=== PATIENT | female | born 1990 | race Caucasian/White ===

== ENCOUNTER 2020-05-15 13:34 | Outpatient (CLI) | payer OTHER, SELFPAY ==
[2020-05-15 23:09] LABS: SARS-CoV-2 RNA PCR Negative
== END 2020-05-15 13:35 | disposition home or self-care (01) ==
LOC: CHSLAB 13:38
PROVIDERS: PCP Internal Medicine; Visit Provider Internal Medicine
DX: Z20.828 Contact with and (suspected) exposure to other viral communicable diseases (principal)
CPT/HCPCS: 87635; C9803; U0003

== ENCOUNTER 2020-09-30 10:40 | Outpatient (CLI) | payer OTHER, SELFPAY ==
[2020-10-01 09:43] LABS: Free T4 Free Thyroxine 1.19 ng/mL (0.78-2.19)
[2020-10-01 09:57] LABS: Thyroid Stimulating Hormone 0.821 uIU/mL (0.465-4.680)
== END 2020-09-30 10:41 | disposition home or self-care (01) ==
PROVIDERS: PCP Internal Medicine; Visit Provider Obstetrics & Gynecology
DX: R63.5 Abnormal weight gain (principal)
CPT/HCPCS: 36415; 84439; 84443

== ENCOUNTER 2021-10-22 14:04 | Outpatient (CLI) | payer OTHER, SELFPAY ==
[2021-10-22 18:28] LABS: SARS-CoV-2 RNA PCR Negative (Negative)
== END 2021-10-22 14:05 | disposition home or self-care (01) ==
PROVIDERS: PCP Internal Medicine; Visit Provider Internal Medicine
DX: J06.9 Acute upper respiratory infection, unspecified (principal); Z20.822 Contact with and (suspected) exposure to COVID-19
CPT/HCPCS: C9803; U0003; U0005

== ENCOUNTER 2021-11-12 11:22 | Outpatient (CLI) | payer OTHER, SELFPAY ==
--- NOTE | ~2021-11-12 | XR_ITS ---
EXAMINATION: XR chest 2V DATE: 11/12/2021 11:48 INDICATION: Chronic cough. Intermittent chest pain. Shortness of breath. TECHNIQUE: Frontal and lateral views of the chest were obtained. COMPARISON: None. FINDINGS: The chest demonstrates clear lungs without pneumonia, pleural effusion, or pneumothorax. Th e heart size is normal. IMPRESSION: 1. No acute cardiopulmonary disease. Reviewed, dictated and finalized at location A.
[2021-11-12 11:35] LABS: Basophils Absolute Auto 0.03 K/mm3 (0.00-0.10); Basophils Percent Auto 0.5 % (0.0-1.0); Eosinophils Absolute Auto 0.13 K/mm3 (0.02-0.50); Hematocrit 38.5 % (35.0-49.0); Hemoglobin 12.9 g/dL (12.0-15.0); Immature Granulocyte Absolute 0.03 K/mm3 (0.00-0.00); Immature Granulocyte Percent A 0.5 % (0.0-0.0); Lymphocytes Absolute Auto 1.83 K/mm3 (1.10-4.50); Lymphocytes Percent Auto 27.7 % (18.0-42.0); Mean Corpuscular HGB Conc 33.5 g/dL (32.0-36.0); Mean Corpuscular Hemoglobin 30.5 pg (27.0-31.0); Mean Platelet Volume 8.9 fl (9.2-11.8); Monocytes Absolute Auto 0.39 K/mm3 (0.10-0.90); Monocytes Percent Auto 5.9 % (2.0-11.0); Neutrophils Absolute Auto 4.2 K/mm3 (1.7-7.2); Neutrophils Percent Auto 63.4 % (50.0-70.0); Platelet Count Result 317 K/mm3 (150-420); Red Blood Count 4.23 M/mm3 (4.20-5.40); Red Cell Distribution Width 12.3 % (11.6-14.4); White Blood Count 6.6 K/mm3 (4.8-10.8)
[2021-11-12 11:53] LABS: Add Urine Microscopic? NO; Appearance Urine Clear (Clear); Bilirubin Urine Negative (Negative); Blood Urine Negative (Negative); Color Urine Light Yellow (Yellow); Glucose Urine UA Negative (Negative); Ketones Urine Negative (Negative); Leukocyte Esterase Ur Negative LEU/UL (Negative); Nitrate Urine Negative (Negative); Protein Urine Negative (Negative); Urobilinogen Urine 0.2 mg/dL (0.2-1.0)
[2021-11-12 13:50] LABS: Alanine Aminotransferase 48 U/L (14-59); Albumin Level 4.1 g/dL (3.4-5.0); Alkaline Phosphatase 94 U/L (46-116); Anion Gap 8 mmol/L (8-16); Aspartate Amino Transferase 85 U/L (15-37); Bilirubin,Total 0.5 mg/dL (0.00-1.00); Blood Urea Nitrogen 16 mg/dL (7-18); Calcium 9.4 mg/dL (8.5-10.1); Carbon Dioxide 27 mmol/L (21-32); Chloride 101 mmol/L (98-108); Cholesterol 194 mg/dL (0-200); Estimated Glomerular Filt Rate > 60; Glucose 87 mg/dL (70-99); HDL Direct 66 mg/dL (40-60); LDL Cholesterol Calculated 106 mg/dL (<130); Osmolality Calculated 282 mOsm/kg (285-295); Potassium 4.5 mmol/L (3.5-5.1); Sodium 136 mmol/L (136-145); Total Protein 7.3 g/dL (6.4-8.2); Triglycerides 110 mg/dL (0-150)
[2021-11-18 04:11] LABS: Hepatitis A Antibody IgM Nonreactive; Hepatitis B Core Antibody Nonreactive (Nonreactive); Hepatitis B Surface Antigen Nonreactive (Nonreactive); Hepatitis C Signal to Cutoff 0.01 ratio (<1.00); Hepatitis C Virus Antibody Nonreactive (Nonreactive)
== END 2021-11-12 11:23 | disposition home or self-care (01) ==
LOC: CHSLAB 11:27
PROVIDERS: PCP Internal Medicine; Visit Provider Nurse Practitioner Family
DX: Z00.00 Encounter for general adult medical examination without abnormal findings (principal); R05.3 Chronic cough; F41.9 Anxiety disorder, unspecified; Z13.6 Encounter for screening for cardiovascular disorders; R94.5 Abnormal results of liver function studies
CPT/HCPCS: 36415; 71046; 80053; 80061; 80074; 81003; 84443; 85025

== ENCOUNTER 2021-12-05 14:04 | Outpatient (CLI) | payer OTHER, SELFPAY | END 2021-12-05 14:05 | disposition home or self-care (01) | LOC: ANHBWCAUD 14:28 | PROVIDERS: PCP Internal Medicine; Visit Provider Otolaryngology | DX: H93.11 Tinnitus, right ear (principal); H90.0 Conductive hearing loss, bilateral | CPT/HCPCS: 92557; 92567 ==

== ENCOUNTER 2022-01-23 09:31 | Outpatient (CLI) | payer OTHER, SELFPAY | END 2022-01-23 09:32 | disposition home or self-care (01) | LOC: CHSCARD 09:33 | PROVIDERS: PCP Internal Medicine; Visit Provider Nurse Practitioner Family | DX: R05.3 Chronic cough (principal) | CPT/HCPCS: 94060; 94726; 94729 ==

== ENCOUNTER 2022-02-03 13:59 | Outpatient (CLI) | payer OTHER, SELFPAY ==
--- NOTE | ~2022-02-03 | CT_ITS ---
EXAMINATION: CT diagnostic chest wo con DATE: 02/03/2022 14:21 INDICATION: Chronic cough for 2 years. Hemoptysis. TECHNIQUE: Computed tomography (CT) of the chest was performed without intravenous contrast. Automate d exposure control and iterative reconstruction technique were employed. Exam dose: 152.26 mGy-cm to abraham exam DLP. COMPARISON: November 12, 2021 PA and lateral chest FINDINGS: Normal heart size. No pericardial or pleural effusion. No hilar or mediastinal mass lesion or lymphadenopathy. Small right upper lobe calcified pulmonary granuloma. No pulmonary infiltrate or consolidation or pul monary mass lesion. No pneumothorax. The tracheobronchial tree is patent. Normal morphology of the adrenal glands. Included upper abdominal structures are normal. Included skeletal structures are normal except for mild degenerative spurring of the thoracic spine.. IMPRESSION: No significant abnormality Reviewed, dictated and finalized at Location A. Reviewed, dictated and finalized at location B. IMPRESSION: No significant abnormality
== END 2022-02-03 14:00 | disposition home or self-care (01) ==
PROVIDERS: PCP Internal Medicine; Visit Provider Internal Medicine Pulmonary Disease
DX: R04.2 Hemoptysis (principal); M47.814 Spondylosis without myelopathy or radiculopathy, thoracic region
CPT/HCPCS: 71250

== ENCOUNTER 2022-02-24 12:39 | Outpatient (CLI) | payer OTHER, SELFPAY ==
--- NOTE | 2022-02-27 14:27 | WPDMETH ---
Methacholine Procedure Perform Procedure Performed Methacholine Challenge Methacholine Challenge Methacholine Challenge: DOS:02/24/2022 REQUESTING: Dr Agrawal REASON FOR TESTING: Chronic cough METHACHOLINE CHALLENGE This test was conducted per ATS guidelines. A previous study on 01/23/2022 showed normal spirometry, FEV1 122% predicted, 3.49 L. The patient was exposed to sequentially increasing doses of methacholine in the usual manner. Level 1 - saline Level 2 - 0.187 mg/3 mL, 1.87 mcg The test was stopped after the first dose of methacholine with a decrease of 21%. The FEF 25-75% dropped by 58% which is significant. A drop of 20% in the FEV1 is a positive result, and the testing is terminated. Flows returned to normal after bronchodilator was administered. IMPRESSION: This is a strongly positive methacholine challenge with the PD20 1.87 mcg on the first level. The best use for a methacholine challenge is to rule out asthma. Clinical correlation is advised. Eloina Tellez MD
== END 2022-02-24 12:40 | disposition home or self-care (01) ==
LOC: ANHPFT 12:41
PROVIDERS: PCP Internal Medicine; Visit Provider Internal Medicine Pulmonary Disease
DX: R06.02 Shortness of breath (principal); R94.2 Abnormal results of pulmonary function studies
CPT/HCPCS: 94070; J7674

== ENCOUNTER → 2022-03-31 13:53 | Outpatient (CLI) | payer OTHER, SELFPAY ==
--- NOTE | ~2022-03-31 | US_ITS ---
EXAMINATION: US pelvic complete w TV DATE: 03/31/2022 14:32 INDICATION: Pelvic pain Comparison:No prior studies for comparison. TECHNIQUE: Multiple transabdominal and endovaginal sonographic images of the pelvis performed. FINDINGS: The uterus measures 7.6 x 2.8 x 4.5 cm. The endometrial complex measures 3.5 mm. There is a small exophytic uterine fibroid posteriorly measuring 1.5 x 1.6 x 1.7 cm. The right ovary measures 2.9 x 1.8 x 1.9 cm and the left ovary measures 3 x 1.8 x 2.2 cm. There are small follicles in each ovary. Normal doppler signal in both ovaries. There is no free fluid in the pelvis. There are no abnormal masses seen on either side. IMPRESSION: 1. Small exophytic uterine fibroid posteriorly measuring up to 1.7 cm. Reviewed, dictated and finalized at location A.
--- NOTE | ~2022-03-31 | US_ITS ---
US thyroid INDICATION: Enlarged thyroid gland TECHNIQUE: Real-time sonographic images of the thyroid gland were obtained. COMPARISON: No prior studies for comparison. FINDINGS: The right thyroid lobe measures 5.1 x 1.8 x 1.3 cm. The left thyroid lobe measures 4.1 x 1 .3 x 1.4 cm. There is normal echotexture and echogenicity throughout the thyroid gland. In the right lobe there is an isoechoic solid, taller than wide mass with ill-defined margins and no echogenic foc i, TR 4. This nodule measures 11 x 10 x 8 mm. In the left lobe there is a small hypoechoic mixed kamran d and cystic lesion which is wider than tall, without echogenic foci measuring 3 x 2 x 2 mm,, TR 3. N ormal vascular flow is present. IMPRESSION: 1. Bilateral thyroid nodules as described above. Solid right thyroid nodule measures 1.1 cm maximum dimension, TR 4. Follow-up ultrasound in 12 months recommended. Reviewed, dictated and finalized at location A. IMPRESSION: 1. Bilateral thyroid nodules as described above. Solid right thyroid nodule me asures 1.1 cm maximum dimension, TR 4. Follow-up ultrasound in 12 months recomm ended.
== END ==
PROVIDERS: PCP Internal Medicine; Visit Provider Obstetrics & Gynecology
DX: N85.2 Hypertrophy of uterus (principal); E04.9 Nontoxic goiter, unspecified
CPT/HCPCS: 76536; 76830; 76856

== ENCOUNTER 2022-12-10 08:19 | Outpatient (CLI) | payer OTHER, SELFPAY ==
--- NOTE | 2022-12-25 18:36 | WPDHOMESLEEP ---
Sleep Study - Home Unattended Date of Study: 12/10/22 Ordering Provider: Louis Agrawal MD Interpreting Provider: Lila Cantu, DO Home Sleep Study Type: Watch PAT Height: 1.6 m Weight: 74.843 kg Body Mass Index: 29.2 Neck Circumference (inches): 14 [place]: 14 Reason for Sleep Study Previously diagnosed LUIS. Had CPAP but it was recalled. 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 The patient frequently awakens from sleep short of breath. She frequently awakens at night with cough. She occasionally snores but it is rarely loud enough that others complain. She constantly has trouble sleeping when she has a cold. She rarely wakes up gasping for air throughout the night. She frequently has breathing problems at night observed by herself or others. She occasionally sweats excessively at night. She rarely has heart palpitations or irregular heartbeats during the night. She frequently falls asleep during the day. She rarely falls asleep while driving. She denies sleep paralysis and cataplexy. She frequently has trouble at school work due to sleepiness. She rarely experiences vivid dreamlike scenes upon awakening or falling asleep. She denies feeling afraid of going to sleep. She rarely has nightmares. She frequently remembers her dreams. She constantly has thoughts racing through her mind. She frequently feels sad, depressed and anxious. He occasionally has muscular tension. She rarely notices parts of her body jerk. She denies kicking during the night. She occasionally has crawling and aching feelings in her legs but rarely has leg pain during the night. She is unsure if she grinds her teeth during sleep but she occasionally awakens with morning jaw pain. She is occasionally bothered by pain during the day and occasionally awakened by pain during the night. She frequently wakes up feeling stiff in the morning. She occasionally wakes up with sore or achy muscles. She constantly wakes up with pain in the neck, spine or other joints. She goes to bed at 10:00 p.m. or later on weekdays and at 11:00 p.m. or later on the weekends. It can take her a minimum of 1 hour to fall asleep. She wakes up over 5 times throughout the night to urinate and reposition. It can take her over 20 minutes to fall back asleep. She wakes up between 5-9 a.m. on weekdays and between 7-10 a.m. on the weekends. She typically gets 5-7 hours of sleep per night. She will stay in bed for 15 minutes after waking up in the morning. She currently lives alone. She does not consume any caffeinated beverages within 2 hours of bedtime. She does not engage in physical exercise before bedtime. She will watch television before falling asleep. She will take naps in the afternoon or the evening but they are not refreshing. He drinks a minimum of 2 caffeinated beverages per day. She quit smoking cigarettes 5 years ago. She will drink alcohol occasionally. She denies recreational drug use. [facility] Past Medical History Medical History Anxiety Depression Endometriosis Irritable bowel Migraines PCOS (polycystic ovarian syndrome) Sleep apnea Vaginismus Surgical History Surgical History History of laparoscopy History of placement of ear tubes Hx of tonsillectomy Status post nasal septoplasty Family History Family History Grandparent History of blood clots Diabetes mellitus Acute myocardial infarction Hypertension Other Breast cancer Cervical cancer Mother Cervical cancer Other Carcinoma of colon Social History Socia
[2022-12-25 18:45] VITALS: BMI 29.2
== END 2022-12-11 09:38 | disposition home or self-care (01) ==
LOC: ANHCSM 08:19
PROVIDERS: Visit Provider Internal Medicine Pulmonary Disease
DX: G47.33 Obstructive sleep apnea (adult) (pediatric) (principal); G47.9 Sleep disorder, unspecified
CPT/HCPCS: 95800

== ENCOUNTER 2023-02-08 08:09 | Outpatient (CLI) | payer MEDICAID, SELFPAY ==
--- NOTE | ~2023-02-08 | US_ITS ---
EXAMINATION: US OB <=14 wk fetus w TV DATE: 02/08/2023 08:45 INDICATION: Establish dating and viability of TECHNIQUE: Real-time pelvic ultrasound utilizing both a transvaginal and transabdominal probe was pe rformed. The interpreting radiologist was not present for the study. COMPARISON: None. FINDINGS: The uterus measures 9.7 x 6.4 x 5.7 cm. There is an intrauterine gestational sac. A yolk sac and fet al pole are identified. The crown rump length measures 10 mm, which correlates with an estimated gest ational age of 7 weeks and 0 days. heart motion is identified with mean heart rate measuring 14 8 beats per minute (bpm) by M-mode Doppler. Small hypoechoic subchorionic hematoma measuring 6 x 4 x 7 mm. Normal cervical length of 5 cm with 3 mm nabothian cyst. The right ovary measures 2.8 x 2.3 x 1.9 cm. The left ovary measures 4.3 x 2.2 x 2.0 cm. 1.2 cm anech oic left ovarian cyst. There is no free fluid in the pelvis. IMPRESSION: 1. Single living fetus with heart rate of 148 bpm. 2. Gestational age by ultrasound of 7 weeks 0 day(s) +/- 4 day(s) with ultrasound estimated date of delivery (JANICE) of 09/27/2023. 3. Small subchorionic hematoma. Reviewed, dictated and finalized at location D. IMPRESSION: 1. Single living fetus with heart rate of 148 bpm. 2. Gestational age by ultrasound of 7 weeks 0 day(s) +/- 4 day(s) with ultraso und estimated date of delivery (JANICE) of 09/27/2023. 3. Small subchorionic hematoma.
== END 2023-02-08 08:10 | disposition home or self-care (01) ==
LOC: CHSIMG 08:10
PROVIDERS: PCP Internal Medicine; Visit Provider Registered Nurse
DX: Z34.90 Encounter for supervision of normal pregnancy, unspecified, unspecified trimester (principal); Z3A.01 Less than 8 weeks gestation of pregnancy; O36.8911 Maternal care for other specified fetal problems, first trimester, fetus 1
CPT/HCPCS: 76801; 76817

== ENCOUNTER 2023-03-05 12:44 | Outpatient (CLI) | payer MEDICAID, SELFPAY ==
[2023-03-05 13:32] LABS: Basophils Percent Auto 0.2 % (0.2-1.2); Eosinophils Percent Auto 0.2 % (0-4.4); Hematocrit 36.3 % (37.0-47.0); Hemoglobin 12.3 g/dL (12.0-15.0); Immature Granulocyte Absolute 0.04 K/mm3 (0.00-0.031); Immature Granulocyte Percent A 0.4 % (0-0.5); Lymphocytes Absolute Auto 0.99 K/mm3 (0.9-3.2); Lymphocytes Percent Auto 9.9 % (18.3-44.2); Mean Corpuscular HGB Conc 33.9 g/dl (32-36); Mean Corpuscular Hemoglobin 30.5 pg (26-34); Mean Corpuscular Volume 90.1 fl (80-100); Mean Platelet Volume 9.7 fl (7.4-10.4); Monocytes Absolute Auto 0.4 K/mm3 (0.1-0.6); Monocytes Percent Auto 3.6 % (2.6-8.5); Neutrophils Absolute Auto 8.6 K/mm3 (1.3-6.7); Neutrophils Percent Auto 85.7 % (45.5-73.1); Platelet Count Result 252 k/mm3 (150-375); Red Blood Count 4.03 M/mm3 (4.2-5.4); Red Cell Distribution Width 12.5 % (11.5-14.5)
[2023-03-05 14:01] LABS: Vitamin D 25 Hydroxy 30.6 ng/mL
[2023-03-05 14:12] LABS: Thyroid Stimulating Hormone 0.464 uIU/mL (0.465-4.680)
[2023-03-05 14:16] LABS: Hepatitis B Surface Antigen Negative (Negative)
[2023-03-05 14:21] LABS: HIV 1/2 Ab P24 Ag Result Negative (Negative)
[2023-03-05 14:32] LABS: Hepatitis C Virus Antibody Negative (Negative)
[2023-03-05 17:06] LABS: Rapid Plasma Reagin Non-Reactive (NonReactive)
[2023-03-09 17:23] LABS: Hematocrit 39.3 % (35.0-45.0); Hemoglobin 12.5 g/dL (11.7-15.5); MCV 94.2 fL (80.0-100.0); RDW 12.7 % (11.0-15.0); Red Blood Cell Count 4.17 Mill/uL (3.80-5.10)
[2023-03-16 00:09] LABS: CF Result NEGATIVE (NEGATIVE)
== END 2023-03-05 12:45 | disposition home or self-care (01) ==
LOC: ANHLAB 12:46
PROVIDERS: PCP Internal Medicine; Visit Provider Obstetrics & Gynecology
DX: Z34.90 Encounter for supervision of normal pregnancy, unspecified, unspecified trimester (principal); G47.9 Sleep disorder, unspecified
CPT/HCPCS: 36415; 81220; 82306; 83021; 84443; 85025; 86592; 86703; 86762; 86787; 86803; 86850; 86900; 86901; 87077; 87086; 87088; 87340; G0432

== ENCOUNTER 2023-03-11 16:29 | Outpatient (CLI) | payer MEDICAID, SELFPAY ==
[2023-03-11 17:21] LABS: Free T4 Free Thyroxine 1.08 ng/dL (0.76-1.46)
== END 2023-03-11 16:30 | disposition home or self-care (01) ==
LOC: CHSLAB 16:31
PROVIDERS: PCP Internal Medicine; Visit Provider Obstetrics & Gynecology
DX: R79.89 Other specified abnormal findings of blood chemistry (principal)
CPT/HCPCS: 36415; 84439

== ENCOUNTER 2023-03-29 10:49 | Emergency (ER) | payer MEDICAID, SELFPAY ==
--- NOTE | ~2023-03-29 | US_ITS ---
EXAMINATION: US OB follow up DATE: 03/29/2023 15:07 INDICATION: Suprapubic pain during second trimester TECHNIQUE: Real-time ultrasound of the pelvis was performed. The interpreting radiologist was not pre sent for the study. COMPARISON: None. FINDINGS: There is a single living fetus in vertex presentation. The placenta is anterior. card iac activity and movement are noted. heart rate is 148 beats per minute (bpm). The amniot ic fluid index is subjectively normal. The following biometric data were obtained: Biparietal diameter (BPD): 2.8 cm; head circumference (HC): 10.4 cm; abdominal circumference (AC): 7. 8 cm; femur length (FL): 1.5 cm. These measurements are concordant. Estimated weight is 97 g +/- 14 g, which correlates with the 65th percentile when 09/27/2023 is used as estimated date of delivery. As single measurements, these parameters are each equal to the following estimated gestational ages w ith ranges of +/- 2 standard deviations: BPD: 15 weeks 0 days +/- 1 weeks 1 days. HC: 14 weeks 6 days +/- 1 weeks 1 days. AC: 14 weeks 2 days +/- 1 weeks 5 days. FL: 14 weeks 4 days +/- 1 weeks 3 days. estimated gestational age based solely on measurements from this exam is 14 weeks 5 days +/- 1 weeks 0 days. IMPRESSION: 1. Single living fetus in vertex presentation. 2. Estimated weight is 97 g +/- 14 g, which correlates with the 65th percentile when 09/27/2023 is used as estimated date of delivery. 3. No sonographic correlate for the patient's symptoms. Reviewed, dictated and finalized at location A. IMPRESSION: 1. Single living fetus in vertex presentation. 2. Estimated weight is 97 g +/- 14 g, which correlates with the 65th per centile when 09/27/2023 is used as estimated date of delivery. 3. No sonographic correlate for the patient's symptoms.
[2023-03-29 11:36] VITALS: BP 119/72; PULSE 68; RESP 20; TEMP 36.2; O2SAT 100
[2023-03-29 11:51] LABS: Basophils Percent Auto 0.2 % (0.2-1.2); Eosinophils Percent Auto 0.2 % (0-4.4); Hematocrit 35.7 % (37.0-47.0); Immature Granulocyte Absolute 0.05 K/mm3 (0.00-0.031); Immature Granulocyte Percent A 0.5 % (0-0.5); Lymphocytes Absolute Auto 1.28 K/mm3 (0.9-3.2); Lymphocytes Percent Auto 12.4 % (18.3-44.2); Mean Corpuscular HGB Conc 33.6 g/dl (32-36); Mean Corpuscular Hemoglobin 30.7 pg (26-34); Mean Corpuscular Volume 91.3 fl (80-100); Mean Platelet Volume 9.5 fl (7.4-10.4); Monocytes Absolute Auto 0.4 K/mm3 (0.1-0.6); Monocytes Percent Auto 3.5 % (2.6-8.5); Neutrophils Absolute Auto 8.6 K/mm3 (1.3-6.7); Neutrophils Percent Auto 83.2 % (45.5-73.1); Platelet Count Result 230 k/mm3 (150-375); Red Blood Count 3.91 M/mm3 (4.2-5.4); Red Cell Distribution Width 12.8 % (11.5-14.5); White Blood Count 10.3 K/mm3 (4.5-10.0)
[2023-03-29 12:01] LABS: Alanine Aminotransferase 34 U/L (6-35); Albumin Level 4.2 g/dL (3.5-5.1); Alkaline Phosphatase 70 U/L (38-126); Anion Gap 7 mmol/L (8-16); Aspartate Amino Transferase 32 U/L (14-36); Bilirubin,Total 0.6 mg/dL (0.2-1.3); Blood Urea Nitrogen 10 mg/dL (7-17); Calcium 9.2 mg/dL (8.4-10.2); Carbon Dioxide 24 mmol/L (22-30); Chloride 100 mmol/L (98-107); Estimated CRCL calculation 96 ml/min; Estimated Glomerular Filt Rate > 60; Glucose 90 mg/dL (65-110); Lipase 37 U/L (23-300); Potassium 4.6 mmol/L (3.4-5.0); Sodium 131 mmol/L (137-145)
[2023-03-29 12:33] LABS: Appearance Urine Cloudy (Clear); Bacteria Urine 3+ /hpf; Bilirubin Urine 1+ (Negative); Blood Urine Negative (Negative); Color Urine Dark Yellow (Yellow); Glucose Urine UA Negative (Negative); Ketones Urine 1+ mg/dL (Negative); Leukocyte Esterase Ur 1+ LEU/UL (Negative); Need Manual Microscopic Reviewed; Nitrate Urine Negative (Negative); Protein Urine 1+ mg/dL (Negative); RBC Urine 0-2 /hpf (0-2); Specific Grav Ur 1.027 (1.001-1.035); Squamous Epithelial Cell Urine Many /hpf (Few)
[2023-03-29 12:34] LABS: Add Urine Microscopic? YES
[2023-03-29] MEDS: SODIUM CHLORIDE 0.9% IV 1,000 ML 999 ML IV CONT ×3 (13:40→18:00)
[2023-03-29] MEDS: METOCLOPRAMIDE HCL INJ 10 MG/2 ML VIAL IV PUSH (13:43)
--- NOTE | 2023-03-29 14:30 | ED.NAVMDI ---
HPI - Nausea/Vomiting/Diarrhea General Chief complaint: Nausea/Vomiting/Diarrhea Stated complaint: preg/vomiting Time Seen by Provider: 03/29/23 13:33 History of Present Illness HPI Narrative: 32-year-old female, G2, P0 who is currently 14 weeks gestation, LMP 01/21, reports for evaluation for nausea and vomiting x3 days. Patient states anytime she tries to eat or drink something she immediately vomits. She reports multiple episodes of vomiting in the past 3 days. States today she has been having suprapubic and LLQ and RLQ abdominal pain that is intermittent and sharp in nature along with L sided flank pain. States this morning she noticed brown vaginal discharge, denies vaginal bleeding. She denies dysuria or hematuria. She does report low back pain and a migraine behind her eyes with associated photophobia. She has a history of migraines and states this migraine is unchanged from her baseline migraines. She denies focal numbness or weakness, vision changes, chest pain or shortness of breath. Last bowel movement was 2 days ago and normal. Denies diarrhea and constipation, denies concern for STDs. States she follows with Dr. Dowling, [employer]. She had an ultrasound at 7 weeks gestation which proved IUP. Related Data Allergies Allergy/AdvReac Type Severity Reaction Status Date / Time No Known Allergies Allergy Verified 03/29/23 13:39 Review of Systems Review of Systems: CONSTITUTIONAL: Denies fever, chills EYES: Denies visual changes, redness, or discharge. ENT: Denies rhinorrhea, congestion, sore throat, or otalgia. CARDIOVASCULAR: Denies chest pain, palpitations, or edema. RESPIRATORY: Denies cough or dyspnea. GASTROINTESTINAL: See HPI GENITOURINARY: Denies dysuria or hematuria. SKIN: Denies rash or itching. MUSCULOSKELETAL: See HPI NEUROLOGIC: See HPI PSYCHIATRIC: Denies anxiety or depression. Exam Narrative: GENERAL: Well-appearing, in no acute distress. Patient resting comfortably in exam bed. She is pleasant and conversational. HEAD: Normocephalic EYES: PERRLA, EOMI ENT: Nares clear. Mucous membranes moist. Oropharynx without tonsillar hypertrophy exudate or other lesions. NECK: Supple. No nuchal rigidity. CHEST: No respiratory distress. Clear to auscultation, no adventitious breath sounds. HEART: Regular rate and rhythm. No murmur heard. Normal peripheral pulses. ABDOMEN: Abdomen soft with tenderness in the suprapubic region with associated guarding. No overlying skin changes. No peritoneal signs. No CVA tenderness. : No lesions, erythema or edema to external genitalia, vaginal canal or cervix. Cervical os closed. Moderate amount of milky white discharge in vaginal vault. No blood in vaginal vault. No CMT. No adnexal masses or tenderness. EXTREMITIES: Normal range of motion. No edema. SKIN: Warm, dry, no rash. NEURO: No focal deficits. Alert and oriented x3. Cranial nerves II through XII intact. Strength 5/5 in BUE and BLE. Sensation intact throughout. Normal finger-nose. No pronator drift. PSYCH: Normal mood and affect. Course Vital Signs Vital signs: Vital Signs Temperature 97.1 F L 03/29/23 11:36 Pulse Rate 68 03/29/23 11:36 Respiratory Rate 20 03/29/23 11:36 Blood Pressure 119/72 03/29/23 11:36 Pulse Oximetry 100 03/29/23 11:36 Temperature 98.1 F 03/29/23 18:59 Pulse Rate 69 03/29/23 18:59 Respiratory Rate 20 03/29/23 18:59 Blood Pressure 115/70 03/29/23 18:59 Pulse Oximetry 100 03/29/23 18:59 MDM - Nausea/Vomiting/Diarrhea MDM Narrative Medical decision making narrative: 32-year-old female, G2, P0 who is currently 14 weeks gestation, LMP 01/21, reports for evaluation for nausea and vomiting x3 days, suprapubic abdominal pain x1 day, and migraine. Vital stable. She is well-appearing on exam. She is neurovascularly intact. Abdomen is soft with tenderness in the suprapubic region. No peritoneal signs. She did report brown discharge this mo
[2023-03-29] MEDS: ACETAMINOPHEN 500 MG TABLET 1000 MG PO (15:16)
[2023-03-29 15:17] LABS: INR 0.9; Prothrombin Time 12.7 Seconds (11.1-14.7)
[2023-03-29] MEDS: diphenhydrAMINE HCl INJ 50 MG/ML VIAL 25 MG IV PUSH (15:17)
[2023-03-29 15:18] LABS: Magnesium 1.5 mg/dL (1.6-2.3)
[2023-03-29] MEDS: MAGNESIUM SULF 1 GM/D5W 100 ML 1 GM/100 ML BAG IVPB (15:56)
[2023-03-29] MEDS: ONDANSETRON INJ 4 MG/2 ML VIAL IV PUSH (18:00)
[2023-03-29] MEDS: FAMOTIDINE 20 MG/2 ML VIAL IV PUSH (18:56)
[2023-03-29 18:59] VITALS: BP 115/70; PULSE 69; RESP 20; TEMP 36.7; O2SAT 100
== END 2023-03-29 19:00 | disposition home or self-care (01) ==
PROVIDERS: Emergency Medicine; Emergency Provider Physician Assistant
DX: O21.9 Vomiting of pregnancy, unspecified (principal); O26.892 Other specified pregnancy related conditions, second trimester; R82.998 Other abnormal findings in urine; Z3A.14 14 weeks gestation of pregnancy
CPT/HCPCS: 36415; 76816; 80053; 81001; 83690; 83735; 84702; 85025; 85461; 85610; 85730; 86850; 86900; 86901; 87086; 87088; 96361; 96365; 96367; 96375; 99284; A9270; J0696; J1200; J2405; J2765; J3475; J7030

== ENCOUNTER 2023-06-18 14:44 | Outpatient (CLI) | payer OTHER, SELFPAY ==
[2023-06-18 15:20] LABS: SARS-CoV-2 Ag Negative (Negative)
[2023-06-18 16:07] LABS: Strep Group A RT-PCR NOT DETECTED (Negative)
== END 2023-06-18 14:45 | disposition home or self-care (01) ==
LOC: CHSLAB 14:46
PROVIDERS: PCP Internal Medicine; Visit Provider Internal Medicine
DX: R05.9 Cough, unspecified (principal); J02.9 Acute pharyngitis, unspecified
CPT/HCPCS: 87426; 87651; C9803

== ENCOUNTER 2023-06-24 13:41 | Outpatient (CLI) | payer OTHER, SELFPAY ==
[2023-06-24] VITALS (13 sets, daily range): BP systolic 120–134; BP diastolic 64–76; PULSE 94–115; RESP 18; TEMP 36.6; BMI 32.3
--- NOTE | 2023-06-24 14:19 | PC.NURSE ---
Dr. Valenzuela returned page and informed of pt's symptoms, FHT's reactive at 26 wks, occasional uterine irritability, and BP's. Pt has tested negative for strep throat. Orders received.
[2023-06-24 15:03] LABS: Basophils Percent Auto 0.2 % (0.2-1.2); Eosinophils Percent Auto 0.3 % (0-4.4); Hematocrit 30.5 % (37.0-47.0); Immature Granulocyte Percent A 0.8 % (0-0.5); Lymphocytes Absolute Auto 1.24 K/mm3 (0.9-3.2); Mean Corpuscular HGB Conc 32.8 g/dl (32-36); Mean Corpuscular Hemoglobin 30.8 pg (26-34); Mean Corpuscular Volume 93.8 fl (80-100); Mean Platelet Volume 9.6 fl (7.4-10.4); Monocytes Absolute Auto 0.5 K/mm3 (0.1-0.6); Monocytes Percent Auto 4.4 % (2.6-8.5); Neutrophils Absolute Auto 10.4 K/mm3 (1.3-6.7); Neutrophils Percent Auto 84.3 % (45.5-73.1); Platelet Count Result 230 k/mm3 (150-375); Red Blood Count 3.25 M/mm3 (4.2-5.4); Red Cell Distribution Width 13.2 % (11.5-14.5); White Blood Count 12.4 K/mm3 (4.5-10.0)
[2023-06-24 15:10] LABS: Creatinine Urine 142.2 mg/dL; Total Protein Urine Random 6 mg/dL; Ur Ttl Prot Creatinine Ratio 0.04 mg/mg (0-0.20)
[2023-06-24 15:14] LABS: Alanine Aminotransferase 20 U/L (6-35); Albumin Level 3.5 g/dL (3.5-5.1); Alkaline Phosphatase 78 U/L (38-126); Anion Gap 8 mmol/L (8-16); Aspartate Amino Transferase 20 U/L (14-36); Bilirubin,Total 0.5 mg/dL (0.2-1.3); Blood Urea Nitrogen 8 mg/dL (7-17); Calcium 8.9 mg/dL (8.4-10.2); Carbon Dioxide 23 mmol/L (22-30); Chloride 102 mmol/L (98-107); Estimated Glomerular Filt Rate > 60; Glucose 133 mg/dL (65-110); Potassium 3.7 mmol/L (3.4-5.0); Sodium 133 mmol/L (137-145); Uric Acid 2.9 mg/dL (2.5-7.5)
[2023-06-24 15:21] LABS: Appearance Urine Clear (Clear); Bacteria Urine 1+ /hpf; Bilirubin Urine Negative (Negative); Blood Urine Negative (Negative); Color Urine Yellow (Yellow); Glucose Urine UA Negative (Negative); Ketones Urine Trace mg/dL (Negative); Leukocyte Esterase Ur 1+ LEU/UL (Negative); Need Manual Microscopic Reviewed; Nitrate Urine Negative (Negative); Non Pathogenic Casts 0-2; Protein Urine Negative (Negative); RBC Urine 0-2 /hpf (0-2); Specific Grav Ur 1.019 (1.001-1.035); Squamous Epithelial Cell Urine Moderate /hpf (Few); WBC Urine 0-5 /hpf; pH Urine 6.5 (5.0-9.0)
[2023-06-24 15:22] LABS: Add Urine Microscopic? YES
[2023-06-24 15:42] LABS: Influenza A QL RT-PCR Negative (Negative); Influenza B QL RT-PCR Negative (Negative); RSV RNA, RT-PCR Negative (Negative); SARS-CoV-2 RNA PCR Negative (Negative)
[2023-06-24] MEDS: ACETAMINOPHEN 500 MG TABLET 1000 MG PO (16:06)
--- NOTE | 2023-06-24 16:37 | PC.NURSE ---
Dr. Valenzuela returned call and informed of lab results, BP's, recently gave Tylenol for pt's headache, but no relief yet. Orders received for discharge.
== END 2023-06-24 16:53 | disposition home or self-care (01) ==
LOC: ANHOBOP 13:47 → ANHOBPP 13:47
PROVIDERS: PCP Internal Medicine; Visit Provider Obstetrics & Gynecology
DX: R51.9 Headache, unspecified (principal); H53.8 Other visual disturbances; R03.0 Elevated blood-pressure reading, without diagnosis of hypertension
CPT/HCPCS: 36415; 59025; 80053; 81001; 82570; 84156; 84550; 85025; 87637; 99199; A9270

== ENCOUNTER 2023-07-10 10:26 | Outpatient (CLI) | payer OTHER, SELFPAY ==
[2023-07-10 11:42] LABS: Basophils Absolute Auto 0.03 K/mm3 (0.00-0.10); Basophils Percent Auto 0.3 % (0.0-1.0); Eosinophils Absolute Auto 0.04 K/mm3 (0.02-0.50); Eosinophils Percent Auto 0.4 % (1.0-6.0); Hematocrit 29.8 % (35.0-49.0); Immature Granulocyte Percent A 0.9 % (0.0-0.0); Lymphocytes Absolute Auto 1.37 K/mm3 (1.10-4.50); Lymphocytes Percent Auto 12.6 % (18.0-42.0); Mean Corpuscular HGB Conc 33.6 g/dL (32.0-36.0); Mean Corpuscular Hemoglobin 31.3 pg (27.0-31.0); Mean Corpuscular Volume 93.4 fL (78.0-102.0); Mean Platelet Volume 9.5 fl (9.2-11.8); Monocytes Absolute Auto 0.44 K/mm3 (0.10-0.90); Neutrophils Absolute Auto 8.9 K/mm3 (1.7-7.2); Neutrophils Percent Auto 81.8 % (50.0-70.0); Platelet Count Result 253 K/mm3 (150-420); Red Blood Count 3.19 M/mm3 (4.20-5.40); Red Cell Distribution Width 12.5 % (11.6-14.4); White Blood Count 10.9 K/mm3 (4.8-10.8)
[2023-07-10 12:05] LABS: Glucose 1 Hour PP 50gm Dose 150 mg/dL (70-130)
== END 2023-07-10 10:27 | disposition home or self-care (01) ==
LOC: CHSLAB 10:28
PROVIDERS: PCP Internal Medicine; Visit Provider Registered Nurse
DX: Z34.90 Encounter for supervision of normal pregnancy, unspecified, unspecified trimester (principal)
CPT/HCPCS: 36415; 82947; 85025

== ENCOUNTER 2023-07-12 07:29 | Outpatient (CLI) | payer OTHER, SELFPAY ==
--- NOTE | ~2023-07-12 | US_ITS ---
US thyroid INDICATION: Follow-up thyroid nodules TECHNIQUE: Real-time sonographic images of the thyroid gland were obtained. COMPARISON: Ultrasound dated 03/31/2022 FINDINGS: The right thyroid lobe measures 4.5 x 1.6 x 2 cm. The left thyroid lobe measures 4.1 x 1.2 x 1.4 cm. There is normal echotexture and echogenicity throughout the thyroid gland. In the right lo be there is a stable 11 mm hypoechoic nodule which is wider than tall, solid, smoothly marginated wit hout echogenic foci, TR 4. In the left lobe there is an oval hypoechoic 4 mm which is solid, hypoecho ic, wider than tall, smoothly marginated without echogenic foci, TR 4. Normal vascular flow is prese nt. IMPRESSION: 1. Stable bilateral thyroid nodules, TR 4, likely benign. Consider follow-up ultrasound in 12 months . Reviewed, dictated and finalized at location B. EY KNITTER IMPRESSION: 1. Stable bilateral thyroid nodules, TR 4, likely benign. Consider follow-up u ltrasound in 12 months.
== END 2023-07-12 07:30 | disposition home or self-care (01) ==
LOC: CHSIMG 07:30
PROVIDERS: PCP Internal Medicine; Visit Provider Obstetrics & Gynecology
DX: E04.2 Nontoxic multinodular goiter (principal)
CPT/HCPCS: 76536

== ENCOUNTER 2023-07-21 20:09 | Outpatient (CLI) | payer OTHER, SELFPAY ==
--- NOTE | 2023-08-18 11:24 | WPDSLEEPSTUD ---
Sleep Study Date of Study: 07/21/23 Ordering Provider: Louis Agrawal MD Interpreting Physician: Eloina Tellez MD Sleep Study Type: Polysomnogram Height: 1.6 m Weight: 83.461 kg Body Mass Index: 32.5 Neck Circumference (inches): 14.25 [place]: 13 Reason for Sleep Study Difficulty falling asleep and staying asleep, fatigue and exhaustion; previously used CPAP, diagnosis of severe asthma in the recent past now on inhalers * 12/14/2022 - Home sleep test was negative for obstructive sleep apnea, the apnea-hypopnea index was 0.8 Sleep History Calista Singh is a 32-year-old woman with poor quality sleep. She indicates she has difficulty getting to sleep and staying asleep. She is always exhausted, no matter how much sleep she gets. On occasion she wakes up short of breath. She had a sleep study 2016, was diagnosed with mild sleep apnea with palpitations. She had a CPAP machine for a while but has not used it for about 2 years due to the recall and was not able to get a replacement device. She had a home sleep test on 12/14/2022 that was negative for obstructive sleep apnea, the apnea-hypopnea index was 0.8. She is now being retested. She occasionally awakens from sleep short of breath. She frequently wakes at night with heartburn, belching or coughing.??She frequently snores, occasional snores loudly enough that others complain. She constantly has trouble sleeping when she has a cold. She occasionally wakes up gasping for breath during the night. She occasionally has breathing problems at night. She rarely sweats excessively at night. She occasionally notices her heart pounding or beating irregularly during the night. She occasionally falls asleep during the day. She rarely falls asleep involuntarily, never falls asleep while driving. She never experiences loss of muscle tone with strong emotion. She never feels paralyzed on waking or falling asleep. She rarely experiences vivid dreams upon waking or falling asleep. She never feels afraid of going to sleep. She rarely has nightmares. She frequently recalls her dreams. She constantly has thoughts racing through her mind. She occasional feels sad or depressed. She constantly feels anxiety. She occasionally notices parts of her body jerk. She rarely kicks during the night. She rarely feels crawling or aching feelings in her legs. She occasionally feels leg pain at night. She occasionally has morning jaw pain, and occasionally grinds her teeth at night. She occasionally feels bothered by pain during the day, is occasionally awakened by pain during the night. She rarely wakes up feeling stiff in the morning, occasionally but sometimes frequently wakes feeling sore or achy in the morning. She frequently awakens with pain in her neck, spine, or joints. she has memory problems, concentration problems, bladder problems, insomnia, fatigue, headaches, dizziness and stomach problems. Normal bedtime is Between 9:00 p.m. and 10:00 p.m., falling asleep within 1-3 hours, waking 5 times at night, and during these awakenings she goes to the bathroom, rolls over and tries to become more comfortable. She estimates getting between 5 and 7 hours of sleep most nights. She feels like she never falls asleep and stays asleep.. She wakes Between 7:00 a.m. and 9:00 a.m.. On weekends bedtime may be later, 10:00 p.m. to 12 midnight and wake time may be later, 8:00 a.m. to 9:00 a.m.. In general she does not take naps because she usually feels worse. She does nap on occasion. Habits:??Tobacco: Quit 3 years ago Caffeine: yes, amount is not known. Alcohol: not while Recreational substances: never PMFSH Past Medical History Medical History Anxiety Depression Encounter for supervision of normal , unspecified, unspecified trimester Endometriosis H/O migraine during Irritable bowel Migraines PCOS (polycystic ovarian syndrom
[2023-08-18 11:48] VITALS: BMI 32.5
== END 2023-07-22 06:35 | disposition home or self-care (01) ==
LOC: CHSCSM 20:11
PROVIDERS: PCP Internal Medicine; Visit Provider Internal Medicine Pulmonary Disease
DX: G47.9 Sleep disorder, unspecified (principal)
CPT/HCPCS: 95810

== ENCOUNTER 2023-07-26 07:19 | Outpatient (CLI) | payer OTHER, SELFPAY ==
[2023-07-26 08:01] LABS: Glucose Fasting Gestational 87 mg/dL (>/=95)
[2023-07-26 09:07] LABS: Glucose 1 Hour Gest 151 mg/dL (70-130)
[2023-07-26 10:13] LABS: Glucose 2 Hour Gest 146 mg/dL (<155)
[2023-07-26 11:24] LABS: Glucose 3 Hour Gest 131 mg/dL (>/=140)
== END 2023-07-26 07:20 | disposition home or self-care (01) ==
LOC: CHSLAB 07:20
PROVIDERS: PCP Internal Medicine; Visit Provider Registered Nurse
DX: Z34.90 Encounter for supervision of normal pregnancy, unspecified, unspecified trimester (principal); R73.09 Other abnormal glucose
CPT/HCPCS: 36415; 82951; 82952

== ENCOUNTER 2023-08-11 14:04 | Outpatient (CLI) | payer OTHER, SELFPAY ==
[2023-08-11 14:16] LABS: Hematocrit 33.9 % (35.0-49.0); Hemoglobin 11.4 g/dL (12.0-15.0); Mean Corpuscular HGB Conc 33.6 g/dL (32.0-36.0); Mean Corpuscular Hemoglobin 31.6 pg (27.0-31.0); Mean Corpuscular Volume 93.9 fL (78.0-102.0); Mean Platelet Volume 9.7 fl (9.2-11.8); Platelet Count Result 221 K/mm3 (150-420); Red Blood Count 3.61 M/mm3 (4.20-5.40); Red Cell Distribution Width 13.2 % (11.6-14.4); White Blood Count 11.7 K/mm3 (4.8-10.8)
[2023-08-11 15:00] LABS: HIV 1 P24 AG Negative (Negative); HIV 1/2 AB Negative (Negative)
[2023-08-13 17:09] LABS: RPR Screen Non-Reactive (Non-Reactive)
== END 2023-08-11 14:05 | disposition home or self-care (01) ==
LOC: CHSLAB 14:06
PROVIDERS: PCP Internal Medicine; Visit Provider Obstetrics & Gynecology
DX: Z34.93 Encounter for supervision of normal pregnancy, unspecified, third trimester (principal)
CPT/HCPCS: 36415; 85027; 86592; 87806

== ENCOUNTER 2023-09-24 19:18 | Inpatient (IN) | payer OTHER, SELFPAY ==
[2023-09-24] VITALS (12 sets, daily range): BP systolic 127–152; BP diastolic 71–90; PULSE 78–96; TEMP 36.6–36.7; BMI 33.4
[2023-09-24 20:06] LABS: Basophils Percent Auto 0.2 % (0.2-1.2); Eosinophils Absolute Auto 0.1 K/mm3 (0-0.3); Eosinophils Percent Auto 0.9 % (0-4.4); Hematocrit 34.5 % (37.0-47.0); Hemoglobin 11.6 g/dL (12.0-15.0); Immature Granulocyte Absolute 0.11 K/mm3 (0.00-0.031); Immature Granulocyte Percent A 1.2 % (0-0.5); Lymphocytes Absolute Auto 1.45 K/mm3 (0.9-3.2); Lymphocytes Percent Auto 15.8 % (18.3-44.2); Mean Corpuscular HGB Conc 33.6 g/dl (32-36); Mean Corpuscular Volume 92.2 fl (80-100); Mean Platelet Volume 9.5 fl (7.4-10.4); Monocytes Absolute Auto 0.6 K/mm3 (0.1-0.6); Monocytes Percent Auto 6.2 % (2.6-8.5); Neutrophils Absolute Auto 6.9 K/mm3 (1.3-6.7); Neutrophils Percent Auto 75.7 % (45.5-73.1); Platelet Count Result 270 k/mm3 (150-375); Red Blood Count 3.74 M/mm3 (4.2-5.4); White Blood Count 9.2 K/mm3 (4.5-10.0)
[2023-09-24] MEDS: LACTATED RINGERS 1,000 ML 125 ML IV CONT (20:09)
[2023-09-24] MEDS: AMPICILLIN 2 GM/NS 100 ML 2 GM/100 ML BAG IVPB (20:10)
[2023-09-24] MEDS: AMITRIPTYLINE HCL 10 MG TABLET 20 MG PO (20:34)
--- NOTE | 2023-09-24 20:35 | LDADM ---
This patient, Calista Singh, was admitted to Labor/Delivery/Recovery 105 on 09/24/23 at 19:18. Plans for labor, pain management and were discussed with patient. Patient/family oriented to hospital policies and general routines including ID bracelet, bed and alarms, visiting hours, pain management, procedures, bathroom and other care routines, personal items, smoking policy, room service/diet and guest tray routines, security routines, and visiting hours. Patient/Family are encouraged to report perceived risks to care and to ask questions if they do not understand what they are told or what they should do. See OBIX for further documentation.
[2023-09-24] MEDS: FAMOTIDINE 20 MG/2 ML VIAL IV PUSH (21:03)
--- NOTE | 2023-09-24 21:35 | WPDOBADMIT ---
Obstetrics - Admit Note Admission Note: record reviewed. No pertinent additions to the history and/or any subsequent changes in the physical findings that are not consistent with the expected course of the were found. Additions to the history and/or subsequent changes in the physical findings follow. None. @ 39.4wks who presented to L&D with SROM, clear @ 1800. Found to be 4cm dilated; sanjay on her own. complicated by GBS + and h/o migraines. Admit to L&D Continuous monitoring; currently reassuring If no cervical change after 2 hours, will plan for pitocin augmentation Anesthesia consult PRN
[2023-09-25] VITALS (149 sets, daily range): BP systolic 56–152; BP diastolic 16–90; PULSE 64–262; RESP 18–20; TEMP 36.3–37.1; O2SAT 89–100
[2023-09-25] MEDS: AMPICILLIN 1 GM/NS 50 ML 1 GM/50 ML BAG IVPB ×3 (00:04→09:33)
[2023-09-25] MEDS: ONDANSETRON INJ 4 MG/2 ML VIAL IV PUSH (00:19)
--- NOTE | 2023-09-25 03:53 | WPDANESEPP ---
Anes - Eval Pre Procedure Procedure: labor epidural Date/Time: 09/25/23 03:53 Pre Op Diagnosis: Leaking Patient Data Age: 32 Gender: F Height: 1.61 m Weight: 87 kg Last Vital Signs Temp 36.6 C 09/25/23 00:30 Pulse 81 09/25/23 02:01 BP 136/75 09/25/23 02:01 Allergies Allergy/AdvReac Type Severity Reaction Status Date / Time No Known Allergies Allergy Verified 09/14/23 09:41 Home Medications Medication Instructions Recorded Confirmed Type albuterol sulfate 90 mcg/actuation 2 inh inhalation Q4H PRN shortness 03/06/22 09/08/23 Rx aerosol inhaler of breath or wheezing #8.5 grams vitamin#30 30 mg iron-10 1 cap PO DAILY 03/05/23 09/08/23 History mg iron-folic acid 1 mg-omg3 capsule pyridoxine (vitamin B6) 25 mg 25 mg PO DAILY 03/05/23 09/08/23 History tablet magnesium 250 mg tablet 250 mg PO DAILY 05/07/23 09/08/23 History riboflavin (vitamin B2) 25 mg 25 mg PO DAILY 05/07/23 09/08/23 History tablet fluticasone propionate 230 2 puff inhalation BID 06/24/23 09/08/23 History mcg-salmeterol 21 mcg/actuation HFA inhaler (Advair HFA) calcium carbonate 600 mg calcium 600 mg PO DAILY 07/12/23 09/08/23 History (1,500 mg) tablet (Calcium) ondansetron 4 mg disintegrating 4 mg PO Q6H PRN nausea and 07/12/23 09/08/23 Rx tablet vomiting and migraine #30 tabs ferrous sulfate 325 mg (65 mg 65 mg PO DAILY 09/08/23 09/08/23 History iron) tablet (Iron (ferrous sulfate)) amitriptyline 10 mg tablet 20 mg PO QHS #60 tabs 09/09/23 Rx Laboratory Tests 09/24/23 19:58 WBC 9.2 K/mm3 (4.5-10.0) RBC 3.74 L M/mm3 (4.2-5.4) Hgb 11.6 L g/dL (12.0-15.0) Hct 34.5 L % (37.0-47.0) MCV 92.2 fl (80-100) MCH 31.0 pg (26-34) MCHC 33.6 g/dl (32-36) RDW 13.0 % (11.5-14.5) Plt Count 270 k/mm3 (150-375) MPV 9.5 fl (7.4-10.4) Immature Gran % (Auto) 1.2 H % (0-0.5) Neut % (Auto) 75.7 H % (45.5-73.1) Lymph % (Auto) 15.8 L % (18.3-44.2) Cuming % (Auto) 6.2 % (2.6-8.5) Eos % (Auto) 0.9 % (0-4.4) Baso % (Auto) 0.2 % (0.2-1.2) Lymph # (Auto) 1.45 K/mm3 (0.9-3.2) Cuming # (Auto) 0.6 K/mm3 (0.1-0.6) Eos # (Auto) 0.1 K/mm3 (0-0.3) Baso # (Auto) 0.0 K/mm3 (0.0-0.1) Abs Immat Gran (auto) 0.11 H K/mm3 (0.00-0.031) Absolute Neuts (auto) 6.9 H K/mm3 (1.3-6.7) Absolute Nucleated RBC 0.0 K/mm3 (0.0-0.012) Nucleated RBC % 0.0 % (0.0-0.2) RPR Pending Blood Type A Positive Antibody Screen Negative Patient hx anesthesia problems: none Family hx anesthesia problems: none Results Review: All pre-operative results and documents have been reviewed as part of the pre-operative evaluation. [facility] Past Medical History Medical History Anxiety Depression Encounter for supervision of normal , unspecified, unspecified trimester Endometriosis H/O migraine during Irritable bowel Migraines PCOS (polycystic ovarian syndrome) Sleep apnea Vaginismus Surgical History Surgical History History of laparoscopy History of placement of ear tubes Hx of tonsillectomy Status post nasal septoplasty Family History Family History Grandparent History of blood clots Diabetes mellitus Acute myocardial infarction Hypertension Alzheimer disease Other Cervical cancer Breast cancer Mother Cervical cancer Other Carcinoma of colon Social History Social History Smoking status: Former smoker Tobacco type: cigarettes and e-cigarettes/vaping Second hand tobacco smoke exposure: No Alcohol intake: former Alcohol use details: Not since Substance use: never Do You Feel Safe in your Home?
--- NOTE | 2023-09-25 08:26 | PM.OBPNLAB ---
Pain Control Date/time seen: 09/25/23 08:26 Pain control: epidural Pelvic Exam Dilation (cm): 9 Effacement (%): 90 station: -1 Amniotic membrane status: Ruptured Contractions Monitor mode: External Contraction frequency: 2 Contraction pattern: Regular Status status: Category l Assessment and Plan Pitocin rate (mU/min): 2 Assessment: active labor Plan: begin patient augmentation Comments: - has remained 9cm on two exam; so pitocin augmentation started - has epidural now and comfortable/relaxed with increased descent - reassuring heart rate tracing - No signs/symptoms of chorio; continue ampicllin for GBS +
[2023-09-25] MEDS: OXYTOCIN 30 UNITS/NS 500 ML 30 UNITS/500 ML BAG IV CONT (08:27)
[2023-09-25] MEDS: ACETAMINOPHEN 325 MG TABLET 650 MG PO ×2 (09:07→16:36)
[2023-09-25] MEDS: LACTATED RINGERS 1,000 ML 125 ML IV CONT (10:03)
[2023-09-25] MEDS: miSOPROStol 200 MCG TABLET 800 MCG (11:35)
[2023-09-25] MEDS: METHYLERGONOVINE MALEATE 0.2 MG/ML VIAL IM (11:42)
[2023-09-25] MEDS: OXYTOCIN 30 UNITS/NS 500 ML 30 UNITS/500 ML BAG 125 UNITS IV CONT (12:01)
--- NOTE | 2023-09-25 12:03 | PM.OBPRVD ---
OB - Vaginal Delivery Note Procedure Delivery date: 09/25/23 Events: Positive Group B Strep (GBS) Delivery augmentation: Pitocin Delivery monitor: External FHT and External Uterine Route of delivery: Episiotomy description: None Laceration Description: Vaginal and Labial (right) Delivery repair: vicryl Specimen: Yes (placenta) Quantitative Blood Loss (ml): 1,050 Anesthesia type: Epidural Disposition: Floor Complications: No immediate complications Baby Date of : 09/25/23 Time of : 11:24 Weeks of gestation at delivery: 39 (.5) gender: Female presentation: vertex Placenta delivery description: Expressed Cord Vessel Description: 3 Vessels and Delayed Cord Clamping score one minute: 9 score five minutes: 9 Narrative: Calista Progressed to complete dilation and pushed for approximately 35 minutes with good maternal effort. She delivered the head over intact perineum. No nuchal cord was palpated. She easily delivered the 's shoulders and body without complication. The infant was immediately placed skin to skin and had spontaneous cry. Delayed cord clamping was performed. The umbilical cord was doubly clamped and cut. Segment of the cord was collected for cord gases. The remaining cord blood was collected for typing. With Pitocin running and gentle downward traction on the cord, the placenta delivered without complication. Brisk bleeding was noted and bimanual massage was performed due to lower uterine segment atony. After couple minutes of massage the uterus did firm up. Misoprostol 800 mcg was placed rectally. She was also found to have 2 lacerations that were also briskly brisk bleeding. The right labial was repaired using 3-0 Vicryl in the normal fashion and hemostasis was noted. She once again had a large gush and bimanual massage was again performed an atony was noted. A small amount of clots were removed from the uterus and no retained products were palpated. Methergine 0.2mg was then given IM. A cervical polyp was palpated and I was concerned for cervical laceration therefore I carefully examined the entire cervix and no laceration was identified. The base of the cervical polyp was ligated using 2-0 Vicryl. The vaginal laceration was then repaired in the normal fashion using 2-0 Vicryl. She was once again examined and an additional small clot was removed from the uterus but firmed up with bimanual massage. She was monitored closely and no further gushes were noted and her uterus remained firm. She was straight catheterized at the end of the procedure with a small amount of urine noted. Sponge, lap, instrument, and needle counts were correct at the end of the procedure. Mom and baby were left bonding in the birthing suite in a stable condition. [facility] Delivery Billing Delivery Delivery: Delivery Charge (for Dr. Valenzuela)
[2023-09-25] MEDS: IBUPROFEN 600 MG TABLET PO ×2 (12:57→20:47)
[2023-09-25] MEDS: BENZOCAINE 20% AER SPR (*SP) 56 GM CAN 1 SPRAY TOPICAL (12:58)
[2023-09-25] MEDS: WITCH HAZEL 40 PADS 1 PAD TOPICAL (12:58)
[2023-09-25] MEDS: DOCUSATE SODIUM 100 MG CAPSULE PO (16:37)
--- NOTE | 2023-09-25 17:29 | OBPPTRN ---
1436-Patient transferred to post room #291 via wheelchair. Support person present. Oriented to unit, room, information board, rooming in, admission packet and security measures. Patient verbalizes understanding.
[2023-09-25] MEDS: AMITRIPTYLINE HCL 10 MG TABLET 20 MG PO (20:47)
[2023-09-25] MEDS: FLUTICASONE/SALMETEROL 230-21 MCG INHALER 1 PUFF 2 PUFF INHALATION (20:59)
[2023-09-26 02:10] VITALS: BP 118/77; PULSE 89; RESP 16; TEMP 36.8; O2SAT 100
[2023-09-26] MEDS: IBUPROFEN 600 MG TABLET PO ×3 (02:16→17:32)
[2023-09-26 06:00] LABS: Hematocrit 24.9 % (37.0-47.0); Hemoglobin 8.4 g/dL (12.0-15.0); Mean Corpuscular HGB Conc 33.7 g/dl (32-36); Mean Corpuscular Hemoglobin 31.3 pg (26-34); Mean Corpuscular Volume 92.9 fl (80-100); Mean Platelet Volume 9.4 fl (7.4-10.4); Platelet Count Result 207 k/mm3 (150-375); Red Blood Count 2.68 M/mm3 (4.2-5.4); White Blood Count 14.4 K/mm3 (4.5-10.0)
[2023-09-26] MEDS: DOCUSATE SODIUM 100 MG CAPSULE PO ×2 (07:59→17:32)
[2023-09-26] MEDS: MULTIVIT/MIN/PREN/FOL AC/IRON TABLET 1 TAB PO (07:59)
[2023-09-26] MEDS: POLYSACCHARIDE IRON COMPLEX 150 MG CAPSULE PO ×2 (08:07→17:32)
[2023-09-26] MEDS: SIMETHICONE 80 MG TAB.CHEW PO (08:15)
--- NOTE | 2023-09-26 08:45 | P.PNOB_ITS ---
OB - PN: Subj Subjective Date/time seen: 09/26/23 08:45 Narrative: PPD#1 Calista reports doing well today, did have a vasovagal event yesterday when she got up to pee; did not actually faint or hurt herself though. She has showered and ambulated w/o issue today; no symptoms of anemia. Her bleeding is substance abuse specialist today. Her pain is controlled. She is tolerating regular diet, voiding, and passing gas without issues. She is breast feeding. OB - PN: Obj Data Labs 09/26/23 05:43 Labs: Laboratory Results - last 24 hr 09/26/23 05:43 WBC 14.4 H RBC 2.68 L Hgb 8.4 L D Hct 24.9 L MCV 92.9 MCH 31.3 MCHC 33.7 RDW 13.0 Plt Count 207 MPV 9.4 OB - PN A/P Assessment and Plan (1) Normal vaginal delivery: Code(s): O80 - Encounter for full-term uncomplicated delivery Status: Acute (2) hemorrhage: Qualifiers: hemorrhage type: other immediate Qualified Code(s): O72.1 - Other immediate hemorrhage Code(s): O72.1 - Other immediate hemorrhage Status: Acute Plan day: 1 Plan: routine care Comments: - H/H with expected drop; will repeat in AM. Pt asymptomatic, vitals stable, bleeding light today - Will give venofer 500mg IV once - Hydration encouraged - PO pain meds - Regular diet Time Spent With Patient Time: Total time spent is greater than 50% in coordination of care (as documented) at patient's floor/unit and/or counseling patient: Review of Systems Constitutional: Constitutional: Denies chills, Denies fever(s) and Denies headache(s) Eyes: Eyes: Denies change in vision ENT: Denies dizziness and Denies headache(s) Cardiovascular: Cardiovascular: Denies chest pain, Denies palpitations and Denies dyspnea Respiratory: Respiratory: Denies cough and Denies dyspnea Gastrointestinal: Gastrointestinal: Denies nausea and Denies vomiting Neurologic: Denies dizziness and Denies headache(s) Endocrine: Endocrine: Denies palpitations Exam Const: General: cooperative, healthy appearing, comfortable and no acute distress Orientation/consciousness: patient oriented x3 Resp: Effort & Inspection: normal respiratory effort Auscultation: clear to auscultation bilaterally Cardio: Rate: regular rate GI: Inspection: non-distended GI Palp: No abdominal tenderness and Yes Soft to palpation Auscultation: normal bowel sounds : Other: fundus firm Skin: General skin exam: normal color Neuro: General: patient oriented x3 Extrem: General: normal to inspection Psych: Appearance: grossly normal Affect: normal affect Attitude: cooperative
[2023-09-26 09:30] VITALS: BP 129/66; PULSE 82; RESP 16; TEMP 36.4; O2SAT 99
[2023-09-26] MEDS: IRON SUCROSE COMPLEX 500 MG in SODIUM CHLORIDE 0.9% IV 250 ML 79 MG IVPB (09:31)
[2023-09-26] MEDS: FLUTICASONE/SALMETEROL 230-21 MCG INHALER 1 PUFF 2 PUFF INHALATION ×2 (09:40→20:00)
--- NOTE | 2023-09-26 12:06 | WPDANLDPN2 ---
Anes-Prog Note L&D Date/Time: 09/26/23 12:06 Comfortable throughout: labor and delivery Neuraxial method: epidural Epidural/Spinal procedure site: clean & non-tender Neuro status: Neuro function grossly intact. Cardiovascular status: normal Respiratory status: normal Airway patency: baseline Mental status: baseline Post-Op hydration status: normal Vital Signs: Last Vital Signs Temp 36.4 C L 09/26/23 09:30 Pulse 82 09/26/23 09:30 Resp 16 09/26/23 09:30 BP 129/66 09/26/23 09:30 Pulse Ox 99 09/26/23 09:30 O2 Del Method Room Air 09/26/23 09:30 Pain score (VAS): 08/18 I/O: Intake & Output 09/25/23 09/26/23 09/26/23 23:59 07:59 15:59 Intake Total 740 Output Total 500 900 400 Balance -500 -160 -400 Post-procedural complaints: none Patient feedback: Patient satisfied with anesthetic care.
[2023-09-26 20:41] VITALS: BP 114/64; PULSE 89; RESP 16; TEMP 36.5; O2SAT 99
[2023-09-26] MEDS: AMITRIPTYLINE HCL 10 MG TABLET 20 MG PO (20:53)
[2023-09-27 05:31] LABS: Hematocrit 25.4 % (37.0-47.0); Hemoglobin 8.4 g/dL (12.0-15.0)
[2023-09-27 07:50] VITALS: BP 128/77; PULSE 87; RESP 18; TEMP 37.3; O2SAT 100
[2023-09-27] MEDS: IBUPROFEN 600 MG TABLET PO (08:15)
[2023-09-27] MEDS: DOCUSATE SODIUM 100 MG CAPSULE PO (08:15)
[2023-09-27] MEDS: POLYSACCHARIDE IRON COMPLEX 150 MG CAPSULE PO (08:15)
[2023-09-27] MEDS: MULTIVIT/MIN/PREN/FOL AC/IRON TABLET 1 TAB PO (08:16)
[2023-09-27] MEDS: DIBUCAINE 1% OINTMENT 30 GM TUBE 1 APPLIC TOPICAL (08:17)
[2023-09-27] MEDS: BENZOCAINE 20% AER SPR (*SP) 56 GM CAN 1 SPRAY TOPICAL (08:17)
[2023-09-27] MEDS: WITCH HAZEL 40 PADS 1 PAD TOPICAL (08:17)
[2023-09-27] MEDS: MEASLES,MUMPS,RUBELLA VACCINE 0.5 ML VIAL SUB-Q (08:18)
--- NOTE | 2023-09-27 08:49 | PM.OBPNVD ---
OB - PN: Subj Subjective Date/time seen: 09/27/23 08:49 Interval history: PP day 2 Doing well. Ambulating without difficulty. BM x 2 without difficulty. Small lochia. Mild perineal pain. going well. Bonding with infant. Patient comments: no complaints, pain well controlled, tolerating diet and flatus present baby status: doing well [place] feeding status: exclusively breast feeding OB - PN: Obj Data Labs 09/27/23 05:17 Labs: Laboratory Results - last 24 hr 09/27/23 05:17 Hgb 8.4 L Hct 25.4 L OB - PN A/P Assessment and Plan (1) Normal vaginal delivery: Code(s): O80 - Encounter for full-term uncomplicated delivery Status: Acute Assessment and Plan: PP day 2. Will plan to discharge. Pain well controlled. Bonding with infant. Follow up in office in two weeks. Reviewed discharge instructions and reasons to call office. (2) hemorrhage: Qualifiers: hemorrhage type: other immediate Qualified Code(s): O72.1 - Other immediate hemorrhage Code(s): O72.1 - Other immediate hemorrhage Status: Acute Assessment and Plan: HH stable. Will plan PO iron at home. Discussed dietary sources of iron. Plan day: 2 Plan: routine care and discharge home Time Spent With Patient Time: Total time spent is greater than 50% in coordination of care (as documented) at patient's floor/unit and/or counseling patient: Review of Systems Cardiovascular: Cardiovascular: Denies chest pain Respiratory: Respiratory: Denies no additional respiratory complaints Gastrointestinal: Gastrointestinal: Denies abdominal pain Exam Const: General: cooperative and comfortable Resp: Effort & Inspection: normal respiratory effort and able to speak in complete sentences Auscultation: clear to auscultation bilaterally Cardio: Rate: regular rate Rhythm: regular rhythm GI: Inspection: normal to inspection Other: Fundus palpated below U. Non tender : External Female Exam: normal external appearance and external swelling (mild) Extrem: General: normal to inspection, full ROM and no calf tenderness Right lower extremity: no edema Left lower extremity: no edema
--- NOTE | 2023-09-27 09:00 | PM.DS ---
DS: Admitting Diagnosis Discharge Date 09/27/23 Admitting Diagnosis SROM at 39weeks DS: Discharge Diagnosis Discharge Diagnosis (1) Normal vaginal delivery: Code(s): O80 - Encounter for full-term uncomplicated delivery Status: Acute (2) hemorrhage: Qualifiers: hemorrhage type: other immediate Qualified Code(s): O72.1 - Other immediate hemorrhage Code(s): O72.1 - Other immediate hemorrhage Status: Acute DS: Summary Hospital Course Hospital Course: Admitted with SROM at 39 weeks in spontaneous labor. Augmented with Pitocin. She had vaginal delivery with an immediate pp hemorrhage. Given Pitocin, Cytotec, and Methergine and stabilized. Given iron infusion pp. Otherwise, did well pp. Baby did well. She was discharged home on pp day 2. Status at Discharge Functional status at discharge: independent ambulation Time Spent with Patient Time attestation: Total time spent providing and/or coordinating discharge services: Exam Const: General: comfortable and no acute distress Resp: Effort & Inspection: normal respiratory effort Cardio: Rate: regular rate Rhythm: regular rhythm GI: GI Palp: Yes Soft to palpation and No Tenderness to palpation present (GI) : External Female Exam: normal external appearance Skin: General skin exam: normal color Psych: Mental Status: mental status grossly normal DS: Data Data Completed and Pending Pending studies at discharge: Pending at discharge 09/25/23 17:08 Surgical [PTH] Routine Labs on day of discharge: Labs from last 24 hours 09/27/23 05:17 Hgb 8.4 L Hct 25.4 L Discharge Plan Discharge Attending physician on discharge: Alonso Valenzuela Consulting providers: Ivette Vazquez; Poornima Bliss; Criss Rice Discharging Clinician: Criss Rice Patient Disposition: Home, Self-Care Activity: may shower Diet: as tolerated Discharge Instructions: Education: Mom and Baby Guide Given to: Mother Follow-Up: Call your delivering provider's office for an appointment to be seen in: 4 Weeks Mom and baby should come to the [facility] for the follow-up appointment. Appointment Date/Time: September 28, 2023 at 3:30 pm What to expect at your follow-up visit: Blood Pressure Check Physical Assessment Call [phone] if you are unable to keep your appointment time. BREAST CARE: * Wear a snug supportive bra. * For engorgement discomfort: Breast Feeding: * Apply warm moist washcloths * Express milk as needed to relieve engorgement * Wear loose clothing * For sore nipples: * Identify correct latch-on * Apply warm moist washcloths before and after nursing * Air dry nipples after nursing * May apply Lansinoh cream to nipples EPISIOTOMY/PERINEAL CARE: * Until bleeding stops, use your mark bottle after urinating * Change your pad frequently throughout the day * You may take sitz baths several times a day (fill your bathtub with warm water and soak for 20 minutes.) Do NOT bathe in the water * No tub baths until seen by your physician - You may shower ACTIVITY: * Rest as much as possible. * Do not exercise or lift anything heavier than your baby (such as laundry or other children.) for about 2 weeks * Avoid stairs or driving as much as possible for about 2 weeks. * Do not put anything into the vagina. No douching, tampons, or sexual activity until seen by physician. NOTIFY PHYSICIAN IF YOU HAVE ANY QUESTIONS OR IF ANY OF THE FOLLOWING SYMPTOMS OCCUR: * If your vaginal area becomes red, swollen, or more painful than what you have experienced in the hospital. * If your vaginal bleeding becomes foul smelling. * If your vaginal bleeding becomes more heavy than a period or if your bleeding changes from the period color that it is now to br
--- NOTE | 2023-09-27 09:48 | PC.NURSE ---
Patient viewed the discharge video Mother & Baby Care, The First Two Weeks . Patient was given the opportunity and encouraged to ask questions. Patient verbalized understanding of information shared and has been given the mother/baby guide for home reference.
--- NOTE | 2023-09-27 13:44 | PC.NURSE ---
[id number] Introductions were made, then consulted with patient to assess needs related to . Mother led the conversation with her?plans to feed?her infant, the?experience so far, and her /pumping goals. Encouraged understanding of the benefits of skin to skin (demonstrating unwrapping and placing upright on her chest), stimulating with massage touch, changing positions to encourage wakefulness, how to watch for early feeding cues, responsive feeding, feeding on demand (aiming for 8-12 times in 24 hours, about every 2-3 hours), milk production, building/maintaining a milk supply, duration of feeding, signs of adequate intake/output and how to record on the feeding sheet. Mother works well with her with encouragement and education. Reviewed positioning and ear, shoulder, hip alignment, supporting the breast to facilitate a deep latch, asymmetrical latch (off-center), leading with the chin with a big, open, wide gape and body close to mother. latched optimally to the left breast in football, then right with cross cradle position. Education given to the mother of how to visualize the suckling (with good rocking jaw motion), swallows (dropping of the lower jaw) and how to listen for drinking at the breast (the ka sound). was able to maintain latch without pain to mother protecting the nipple with optimal positioning and latching. Reviewed comfort measures of healing with a warm, wet washcloth to rinse breast, then leave open to air-dry, good handwashing when or touching the breast/nipples to prevent infection. Mother is feeding appropriately for growth of infant and understands stimulating infant to eat if needed. Infant has had appropriate feedings in the last 24 hours meets the outcomes for weight, output, blood sugar and jaundice at this time. Mother states she is confident to continue effectively her infant at home, when to call for assistance. Patient was assessed for correct placement, flange size, to pump for comfort and nipple stretching/stimulation for adequate milk production every 3 hours (8 times in 24 hours) 1-2 times at night and there's to be no pain. Reinforced understanding of milk production, transition of milk, signs of adequate intake, transition of stool, prevention/relief of engorgement, plugged ducts, mastitis, responsive watching for feeding cues, the different methods of stimulating infant to breastfeed 1-3 hours after the start of the last feeding, community resources, and when to call a provider using the resource of the feeding sheet and the mom and baby guide. Parents voiced understanding of the education shared.
[2023-09-27 14:56] LABS: Rapid Plasma Reagin Non-Reactive (NonReactive)
[2023-09-28 16:11] VITALS: BP 127/82; PULSE 78; RESP 18; TEMP 36.9; O2SAT 100
== END 2023-09-27 14:34 | disposition home or self-care (01) | DRG 560 ==
LOC: ANHOB2 09-27 09:51 → ANHLDR 09-29 06:23 → ANHOB2 09-29 06:23
PROVIDERS: Admitting Provider Obstetrics & Gynecology; PCP Internal Medicine; Visit Provider Obstetrics & Gynecology
DX: O99.824 Streptococcus B carrier state complicating childbirth (principal); Z37.0 Single live birth; Z3A.39 39 weeks gestation of pregnancy; O42.02 Full-term premature rupture of membranes, onset of labor within 24 hours of rupture; O72.1 Other immediate postpartum hemorrhage; O71.4 Obstetric high vaginal laceration alone; O90.89 Other complications of the puerperium, not elsewhere classified; R55 Syncope and collapse
CPT/HCPCS: 36415; 85014; 85018; 85025; 85027; 86592; 86850; 86900; 86901; 88307; 90710; 94640; A9270; J0290; J1756; J2210; J2405; J2590; J7050; J7120

== ENCOUNTER 2023-11-03 15:50 | Outpatient (CLI) | payer OTHER, SELFPAY ==
[2023-11-03 16:43] LABS: Hematocrit 38.8 % (37.0-47.0); Hemoglobin 12.7 g/dL (12.0-15.0); Mean Corpuscular HGB Conc 32.7 g/dl (32-36); Mean Corpuscular Hemoglobin 30.2 pg (26-34); Mean Corpuscular Volume 92.2 fl (80-100); Mean Platelet Volume 9.5 fl (7.4-10.4); Platelet Count Result 265 k/mm3 (150-375); Red Blood Count 4.21 M/mm3 (4.2-5.4); Red Cell Distribution Width 11.9 % (11.5-14.5)
== END 2023-11-03 15:51 | disposition home or self-care (01) ==
LOC: ANHLAB 15:52
PROVIDERS: PCP Internal Medicine; Visit Provider Obstetrics & Gynecology
DX: D64.9 Anemia, unspecified (principal)
CPT/HCPCS: 36415; 85027

== ENCOUNTER 2024-03-27 10:41 | Outpatient (CLI) | payer OTHER, SELFPAY ==
--- NOTE | ~2024-03-27 | XR_ITS ---
XR abdomen/kub 1V Ordering provider: Ana Chu, [place] ATTENDANT History: . ABDOMINAL PAIN,DISCOMFORT,ACUTE ON CHRONIC . Comparison: None. FINDINGS: BOWEL: Nonobstructive bowel gas pattern. ORGANOMEGALY: None. SIGNIFICANT PATHOLOGIC CALCIFICATIONS: None. OTHER: No free air is seen under the diaphragm. IMPRESSION: NO ACUTE ABDOMINAL FINDINGS. Reviewed, dictated and finalized at location A.
== END 2024-03-27 10:42 | disposition home or self-care (01) ==
LOC: CHSIMG 10:43
PROVIDERS: PCP Internal Medicine; Visit Provider Nurse Practitioner Family
DX: R10.9 Unspecified abdominal pain (principal); T78.1XXA Other adverse food reactions, not elsewhere classified, initial encounter
CPT/HCPCS: 74018

== ENCOUNTER 2025-03-22 11:07 | Outpatient (CLI) | payer OTHER, SELFPAY ==
--- OUTSIDE RECORDS SUMMARY | 2025-03-22 11:28 | XMS_ITS | Clinical Summary ---
Author Organization [facility] Address [address] [place] [address] Care Team Providers Care Product Steward Name Role Phone Unavailable Primary Care Provider Unavailabl e Source Comments [facility],non-owned Affiliates and Associated Physician Practices is amultiple site organization consisting of ambulatory clinics and hospital sitesin [place], [place], [place] and [place]. This disclosure is being madepursuant to the Care Everywhere program and may not contain all information available regarding this patient. Last updated 18.[facility] Allergies No known active allergies Social History Tobacco Use Types Packs/Day Years Used Date Smoking Tobacco: Never Assessed Comments No Sex and Gender Information Value Date Recorded Sex Assigned at Not on file Legal Sex Female 10:42 AM CDT Gender Identity Not on file Sexual Orientation Not on file Plan of Treatment Health Maintenance Due Date Last Done Comments HIV SCREENING 11/21/2003 HEPATITIS C SCREENING 11/16/2006 DTAP/TDAP/TD VACCINES (1 - Tdap) 11/21/2007 HEPATITIS B VACCINE (1 of 3 - 19+ 3-dose series) 11/21/2007 PAP SMEAR 2009 HPV VACCINE (1 - 3-dose SCDM series) 11/21/2015 COVID-19 VACCINE ( - 2023-2 5 season) 2024 DEPRESSION SCREENING 08/09/2024 INFLUENZA VACCINE (#1) 2025 08/11/2013 ZOSTER VACCINE (1 of 2) 2038 HIB VACCINE Aged Out No longer eligi ble based on patient's age to complete this topic MENINGOCOCCAL (Group B) VACC INE SHARED DECISION-MAKING Aged Out No longer eligibl e based on patient's age to complete this topic MENINGOCOCCAL GROUPS A/C/Y/W VACCINE Aged Out No longer eligible b ased on patient's age to complete this topic PNEUMOCOCCAL VACCINE Aged Out No long er eligible based on patient's age to complete this topic Insurance [facility] SELF PAY NO INSURANCE Member Subscriber Plan / Payer (Ef fective for All Dates) Name:Calista Loza Member ID:Not on file Relation to Subscriber:Not on file Name:CALISTA LOZA Subscriber ID:Not on file Address: [address] [place] [address] Payer ID:Not on file Group ID:Not on file Type:Self Pay Address: [place], [place] [facility] SELF PAY NO INSURANCE Member Subscriber Plan / Payer (Ef fective for All Dates) Name:LozaJereie Member ID:Not on file Relation to Subscriber:Not on file Name:LOZACALISTA Subscriber ID:Not on file Address: [address] [place] [address] Payer ID:Not on file Group ID:Not on file Type:Self Pay Address: [place], [place] [facility] SELF PAY NO INSURANCE Member Subscriber Plan / Payer (Ef fective for All Dates) Name:Calista Loza Member ID:Not on file Relation to Subscriber:Not on file Name:CALISTA LOZA Subscriber ID:Not on file Address: [address] [place] [address] Payer ID:Not on file Group ID:Not on file Type:Self Pay Address: [place], [place]
--- OUTSIDE RECORDS SUMMARY | 2025-03-22 11:28 | XMS_ITS | Clinical Summary ---
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 Gender Identity Not on file Sexual Orientation Not on file Last Filed Vital Signs Vital Sign Reading Time Taken Comments Blood Pressure 120/60 12/17/2012 6:58 PM CDT Pulse 78 12/17/2012 6:58 PM CDT Temperature - - Respiratory Rate - - Oxygen Saturation - - Inhaled Oxygen Concentration - - Weight 58.5 kg (129 lb) 12/17/2012 6:58 PM CDT Height 160 cm (5' 3) 12/17/2012 6:58 PM CDT Body Mass Index 22.85 12/17/2012 6:58 PM CDT Plan of Treatment Health Maintenance Due Date Last Done Comments Cervical Cancer Screening Pa p Smear (Age 30 to 64) Every 3 Years 1988 Annual Physical 11/21/1991 Hepatitis C 2006 DTaP, Tdap and Td Vaccines ( 1 - Tdap) 11/21/2007 Hepatitis B Vaccines (1 of 3 - 19+ 3-dose series) 11/21/2007 HPV Vaccines (1 - 3-dose SCD M series) 11/21/2015 Cervical Cancer Screening Pa p with HPV Testing (Age 30 to 64) Every 5 Years 2018 Cervical Cancer Screening with HPV 2018 COVID-19 Vaccine ( - 2023-2 5 season) 2024 Meningococcal B Vaccine Aged Out No l onger eligible based on patient's age to complete this topic Meningococcal Vaccine Aged Out No doris mack eligible based on patient's age to complete this topic Pneumococcal Vaccine: Pediat rics (0 to 5 Years) and At-Risk Patients (6 to 49 Years) Aged Out No longer eligible b ased on patient's age to complete this topic RSV Immunizations Under 20 Months Aged Out No longer eligible based on patient's age to complete this topic
--- OUTSIDE RECORDS SUMMARY | 2025-03-22 11:28 | XMS_ITS | Clinical Summary ---
Author Organization [facility] Address [address] [place] [address] Care Team Providers Care Instructional Design Technologist Name Role Phone Arik Perla MD Primary Care Provider [phone] Allergies No known active allergies Medications azelastine (ASTELIN) 137 mcg (0.1 %) nasal spray Administer 2 sprays into each nostril as needed for allergies 11/24/19 22 Active albuterol HFA (PROVENTIL HFA,VENTOLIN HFA,PROAIR HFA) 90 mcg/actuation inhaler Inhale 2 puffs as needed for wheezing 03/06/20 22 Active Advair HFA 230-21 mcg/actuation inhalerIndications :Maintenance Therapy for Asthma Inhale 2 puffs 2 (two) times a day 05/15/20 22 Active ferrous sulfate (IRON ORAL)Indications:s upplement Take 1 tablet by mouth as needed Active naproxen sodium 220 mg capsule Take 440 mg by mouth as needed Active ondansetron ODT (ZOFRAN-ODT) 4 mg disintegrating tablet Take 1 tablet (4 mg total) by mouth every 8 (eight) hours as needed for nausea or vomiting 15 tablet 06/15/20 22 Active ondansetron ODT (ZOFRAN-ODT) 4 mg disintegrating tablet Take 1 tablet (4 mg total) by mouth every 8 (eight) hours as needed for nausea or vomiting 20 tablet 11/24/19 23 Active Additional Information Patient not taking.Reported on 06/28/2023 traMADoL (ULTRAM) 50 mg tablet Take 1 tablet (50 mg total) by mouth every 6 (six) hours as needed for pain 20 tablet 11/24/19 23 Active Additional Information Patient not taking.Reported on 06/28/2023 ofloxacin (FLOXIN) 0.3 % otic solution Administer 5 drops into the right ear 2 (two) times a day 5 mL 4 12/10/19 23 Active Additional Information Patient not taking.Reported on 06/28/2023 amitriptyline (ELAVIL) 10 mg tablet 06/07/20 Active cephalexin (KEFLEX) 500 mg capsule 03/29/20 Active metoclopramide (REGLAN) 5 mg tablet 04/05/20 Active Active Problems Problem Noted Date Diagnosed Date Cholesteatoma of ear, right 07/17/2022 Conductive hearing loss, uni lateral, right ear, with unrestricted hearing on the contralateral side 05/01/2022 Eustachian tube dysfunction, bilateral 2 History of Helicobacter infection 09/01/2019 Endometriosis 09/01/2019 Bloating 09/01/2019 Heartburn 09/01/2019 Irritable bowel syndrome with constipation 06/28 Increased frequency of urination 06/28/2015 Urinary urgency 06/28/2015 Acne 06/28/2015 Encounter for contraceptive management 5 Surgical History Surgery Date Site/Laterality Comments TYMPANOSTOMY TUBE PLACEMENT Right Ear Pressure Equalization Tube, Insertion, Bilaterally - (Added by TW Conv) UPPER GASTROINTESTINAL ENDOSCOPY COLONOSCOPY TONSILLECTOMY 08/09/2015 - 08/08/2016 Bilateral WISDOM TOOTH EXTRACTION teenager SEPTOPLASTY 08/09/2017 - 08/08/2018 with turbinate reduction EAR SURGERY 06/15/2022 Right Medical History Medical History Date Comments Chronic interstitial cystiti s without hematuria Interstitial cystitis - (Add ed by TW Conv) Personal history of other di seases of the female genital tract History of endometriosis - ( Added by TW Conv) Migraines Anxiety Depression Irritable bowel syndrome Asthma recently diagnos ed 3-4 months ago Sleep apnea Family History Medical History Relation Name Comments Cancer Maternal Grandmother Hypertension Maternal Grandmother Bipolar disorder Mother Bipolar dis order - (Added by TW Conv) Cancer Other aunts/uncles Cancer Paternal Grandfather Diabetes Paternal Grandfather Hypertension Paternal Grandfather Anesthesia problems Neg Hx Relation Name Status Comments Maternal Grandmother Mother Other aunts/uncles Alive Paternal Grandfather Social History Tobacco Use Types Packs/Day Years Used Date Smoking Tobacco: Former Cigarettes 0.3 4 2 015 - 2019 Tobacco Cessation:Counseling Given: Yes Alcohol Use Standard Drinks/Week Comments Yes 0 (1 standard drink = 0.6 oz pur e alcohol) Occasionally AUDIT-C Answer Date Recorded Q1: How often do you have a drink containing alc ohol? 2-4 times a month 11/23/2022 Q2: How many drinks containi ng alcohol do you have on a typical day when you are drinking? 1 or 2 11/23/2022 Q3: How often do you have si x or more drinks on one occasion? Never 11/23/2022 Personal Safety Answer Date Recorded Have you ever been in or are you currently in a harmful physical or emotional relationship or is someone making you feel afraid or unsafe? 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 Gender Identity Not on file Sexual Orientation Not on file Obstetrics History Para Term AB IAB SAB Ectopic Multiple Livin g Live Births 1 Date Outcome GA Total Labor Labor/2nd/3rd Weight Sex Type Anes PTL Jenelle A1 A5 Name Clin Last Filed Vital Signs Vital Sign Reading Time Taken Comments Blood Pressure 118/68 06/28/2023 9:07 AM BUDGET AND POLICY ANALYST Pulse 114 06/28/2023 9:07 AM BUDGET AND POLICY ANALYST Temperature 36.1 C (97 F) 11/23/2022 10:45 AM CDT Respiratory Rate 29 11/23/2022 12:05 PM CDT Oxygen Saturation 98% 06/28/2023 9:07 AM BUDGET AND POLICY ANALYST Inhaled Oxygen Concentration - - Weight 74.8 kg (165 lb) 06/28/2023 9:07 AM BUDGET AND POLICY ANALYST Height 160 cm (5' 3) 06/28/2023 9:07 AM BUDGET AND POLICY ANALYST Body Mass Index 29.23 06/28/2023 9:07 AM BUDGET AND POLICY ANALYST Plan of Treatment Health Maintenance Due Date Last Done Comments Cervical Cancer Screening 1988 Depression Screening 1988 Hepatitis C Screening 1988 DTaP/Tdap/Td Vaccine (6 - Tdap) 11/21/1999 03/13/1994, 12/14/1990, 10/20/1989, Additional history exists Varicella Vaccines (1 of 2 - 13+ 2-dose series) 2001 Regular Well Visit/Exam 18-64 2006 HPV Vaccines (1 - 3-dose SCDM series) 11/21/2015 Influenza Vaccine (#1) 2025 08/11/2013 Hepatitis B Screening Completed 08/13/2000 , 03/12/2000, 02/13/2000 Pneumococcal vaccine <65 Aged Out No longer eligible based on patient's age to complete this topic Medical Devices Implanted Type Area Stubber Device Identifier Shelf Expiration Date Model / Serial / Lot Implantech Alliedsil 3x2in Nonreinforced Permanent Implantable Thk.04in 23-700-40 - [id number] Implanted:Qty: 1 on 06/15/2022 by Franklin Murdock MD at [facility] Right: Ear Implantech 04/14/2027 23-700-40 / / [id number] [employer] [place] .8mm 2.3mm 3-7mm Total Center Integrate Shoe 3mm Prosthesis 604 - [id number] Implanted:Qty: 1 on 11/23/2022 by Franklin Murdock MD at [facility] Right: Ear [employer] [id number] 07/09/2026 604 / / [id number] Insurance [facility] Care Teams Instructional Design Technologist Relationship Specialty Start Date End Date Arik Perla MD PCP - General Internal Medicine 06/20/19
[2025-03-22 11:33] LABS: Hematocrit 41.5 % (37.0-47.0); Hemoglobin 13.6 g/dL (12.0-15.0); Mean Corpuscular HGB Conc 32.8 g/dl (32-36); Mean Corpuscular Hemoglobin 29.8 pg (26-34); Mean Corpuscular Volume 91.0 fl (80-100); Platelet Count Result 319 k/mm3 (150-375); Red Blood Count 4.56 M/mm3 (4.2-5.4); White Blood Count 6.0 K/mm3 (4.5-10.0)
[2025-03-22 11:53] LABS: Alanine Aminotransferase 26 U/L (6-35); Albumin Level 4.7 g/dL (3.5-5.1); Alkaline Phosphatase 74 U/L (38-126); Anion Gap 8 mmol/L (4-12); Aspartate Amino Transferase 29 U/L (14-36); Bilirubin,Total 0.4 mg/dL (0.2-1.3); Blood Urea Nitrogen 15 mg/dL (7-17); Calcium 9.4 mg/dL (8.4-10.2); Carbon Dioxide 26 mmol/L (22-30); Chloride 101 mmol/L (98-107); Estimated Glomerular Filt Rate > 60; Glucose 97 mg/dL (65-110); Potassium 4.5 mmol/L (3.4-5.0); Sodium 135 mmol/L (137-145); Total Protein 8.2 g/dL (6.3-8.2)
[2025-03-22 12:26] LABS: Thyroid Stimulating Hormone Reflex 1.210 uIU/mL (0.465-4.68)
[2025-03-23 12:08] LABS: FSH 11.1 mIU/mL (.)
[2025-03-26 21:07] LABS: Estrogens, Total 136 pg/mL (.)
[2025-03-30 01:07] LABS: Free Testosterone (Direct) 0.2 pg/mL (0.0-4.2)
== END 2025-03-22 11:08 | disposition home or self-care (01) ==
LOC: ANHLAB 11:08
PROVIDERS: PCP Internal Medicine; Visit Provider Obstetrics & Gynecology
DX: N95.1 Menopausal and female climacteric states (principal); R09.81 Nasal congestion
CPT/HCPCS: 36415; 80053; 82306; 82672; 83001; 84144; 84402; 84403; 84443; 85027

== ENCOUNTER 2025-05-14 09:42 | Outpatient (CLI) | payer OTHER, SELFPAY ==
--- NOTE | ~2025-05-14 | MM_ITS ---
EXAMINATION: MM diagnostic gallito BI w jaimie INDICATION: 34-year old female; nonfocal BILATERAL Breast pain COMPARISON: Baseline TECHNIQUE: Digital breast tomosynthesis CC and MLO of Both breasts and True lateral view of Both breasts were obtained with computer-aided detection to assist in interpretation of the study. FINDINGS: The breasts are extremely dense, which lowers the sensitivity of mammography. There are no suspicious masses, calcifications, architectural distortion or other abnormalities in Both breasts. IMPRESSION: No evidence of malignancy in Both breasts. RECOMMENDATIONS: 1. Clinical management of patient's breast pain. 2. If the patient has high risk factors for developing breast cancer, such as, but not limited dense breasts, positive gene markers, first degree relative with breast cancer which is not tested for Gene markers of greater than 20% lifetime risk of developing breast cancer, supplemental breast MRI screening (ultrasound if MRI is contraindicated), in addition to annual screening mammography, should be considered and discussed with the patient. BI-RADS 2, BENIGN Reviewed, dictated and finalized at location C. IMPRESSION: No evidence of malignancy in Both breasts. RECOMMENDATIONS: 1. Clinical management of patient's breast pain. 2. If the patient has high risk factors for developing breast cancer, such as, but not limited dense breasts, positive gene markers, first degree relative wit h breast cancer which is not tested for Gene markers of greater than 20% lifeti me risk of developing breast cancer, supplemental breast MRI screening (ultraso und if MRI is contraindicated), in addition to annual screening mammography, sh ould be considered and discussed with the patient. BI-RADS 2, BENIGN
--- OUTSIDE RECORDS SUMMARY | 2025-05-14 10:36 | XMS_ITS | Clinical Summary ---
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 Gender Identity Not on file Sexual Orientation Not on file Obstetrics History Para Term AB IAB SAB Ectopic Multiple Livin g Live Births 1 Date Outcome GA Total Labor Labor/2nd/3rd Weight Sex Type Anes PTL Jenelle A1 A5 Name Clin Last Filed Vital Signs Vital Sign Reading Time Taken Comments Blood Pressure 118/68 06/28/2023 9:07 AM COUNTY MANAGER Pulse 114 06/28/2023 9:07 AM COUNTY MANAGER Temperature 36.1 C (97 F) 11/23/2022 10:45 AM CDT Respiratory Rate 29 11/23/2022 12:05 PM CDT Oxygen Saturation 98% 06/28/2023 9:07 AM COUNTY MANAGER Inhaled Oxygen Concentration - - Weight 74.8 kg (165 lb) 06/28/2023 9:07 AM COUNTY MANAGER Height 160 cm (5' 3) 06/28/2023 9:07 AM COUNTY MANAGER Body Mass Index 29.23 06/28/2023 9:07 AM COUNTY MANAGER Plan of Treatment Health Maintenance Due Date [...] this topic Medical Devices Implanted Type Area Electric Truck Operator Device Identifier Shelf Expiration Date Model / Serial / Lot Implantech [employer] 3x2in Nonreinforced Permanent Implantable Thk.04in 23-700-40 - [id number] Implanted:Qty: 1 on 06/15/2022 by Franklin Murdock MD at [facility] [place] Right: Ear Implantech 04/14/2027 23-700-40 / / [id number] [employer] [place] .8mm 2.3mm 3-7mm Total Center Integrate Shoe 3mm Prosthesis 604 - [id number] Implanted:Qty: 1 on 11/23/2022 by Franklin Murdock MD at [facility] Right: Ear [employer] [id number] 07/09/2026 604 / / [id number] Insurance [facility] Care Teams Nutrition Teacher Relationship Specialty Start Date End Date Arik Perla MD PCP - General Internal Medicine 06/20/19
== END 2025-05-14 09:43 | disposition home or self-care (01) ==
PROVIDERS: PCP Internal Medicine; Visit Provider Obstetrics & Gynecology
DX: Z12.31 Encounter for screening mammogram for malignant neoplasm of breast (principal); Z80.3 Family history of malignant neoplasm of breast
CPT/HCPCS: 77062; 77066; G0279